=== PATIENT | male | born 1980 | race Caucasian/White ===

== ENCOUNTER 2016-08-21 08:00 | Outpatient (RCR) | payer BC ==
[~2016-08-21 08:00] MED LIST: CEPHALEXIN500 M1 PO; LEVAQUIN 250MG250 MG PO; NO HOME MEDICATIONS
== END 2016-10-03 09:14 | disposition home or self-care (01) ==
LOC: WSOT 08:00
DX: S62.601D Fracture of unspecified phalanx of left index finger, subsequent encounter for fracture with routine healing (principal); S62.603D Fracture of unspecified phalanx of left middle finger, subsequent encounter for fracture with routine healing; X58.XXXD Exposure to other specified factors, subsequent encounter